=== PATIENT | female | born 1995 | race African-American/Black ===

== ENCOUNTER 2016-07-05 18:08 | Emergency (ER) | payer MEDICARE ==
[2016-07-05 19:06] LABS: HCG URINE NEGATIVE (NEGATIVE)
[2016-07-05 20:58] LABS: HCG SERUM NEGATIVE (NEGATIVE)
[2016-07-05 21:18] LABS: COLOR YELLOW (YELLOW)
[2016-07-05 21:19] LABS: APPEARANCE CLEAR (CLEAR); BILIRUBIN NEGATIVE (NEGATIVE); GLUCOSE NEGATIVE (NEGATIVE); KETONE NEGATIVE (NEGATIVE); LEUKOCYTE ESTERASE NEGATIVE (NEGATIVE); NITRITE NEGATIVE (NEGATIVE); PROTEIN NEGATIVE (NEGATIVE); SPECIFIC GRAVITY 1.015 (1.005-1.020); UROBILINOGEN NORMAL (NORMAL)
== END 2016-07-05 21:56 | disposition home or self-care (01) ==
LOC: D.LDO 18:08 → D.ER 18:08 → EDSTATUS 19:57 → D.ER 21:56
PROVIDERS: Nurse Practitioner Family; Obstetrics & Gynecology
DX: Z32.02 Encounter for pregnancy test, result negative (principal); F60.3 Borderline personality disorder

== ENCOUNTER 2017-07-12 14:50 | Emergency (ER) | payer MEDICARE | END 2017-07-12 19:00 | disposition left against medical advice (07) | LOC: D.ER 14:50 | DX: J02.9 Acute pharyngitis, unspecified (principal) ==

== ENCOUNTER 2019-09-01 16:18 | Emergency (ER) | payer MEDICAID ==
[~2019-09-01] VITALS: Ht 157.5 cm; Wt 106.4 kg
[2019-09-01 16:27] VITALS: Ht 157.5 cm; Wt 106.4 kg
[2019-09-01 17:12] LABS: HEMATOCRIT 41.7 % (36.0-48.0); LYMPHOCYTES 34.2 % (15-50); MCH 25.9 pg (26.0-34.0); MCHC 31.2 g/dL (31.0-37.0); MCV 83.1 fL (80.0-100.0); MEAN PLATELET VOLUME 9.7 fL (7.4-10.4); NEUTROPHILS 59.4 % (40-80); RBC 5.02 10x6/uL (4.00-5.40); RDW 12.9 % (11.5-14.5); WBC 7.8 10x3/uL (4.8-10.8)
[2019-09-01 17:16] LABS: PLATELET COUNT 297 10x3/uL (130-400)
[2019-09-01 17:33] LABS: CALC OSMOLALITY 273 mosm/kg (275-300); CALCIUM 8.4 mg/dL (8.5-10.1); CARBON DIOXIDE 25.9 mmol/L (21.0-32.0); CHLORIDE - SERUM 103 mmol/L (98-107); CREATININE - SERUM 0.9 mg/dL (0.6-1.3); HCG SERUM NEGATIVE (NEGATIVE); POTASSIUM - SERUM 3.7 mmol/L (3.5-5.1); SODIUM 137 mmol/L (136-145); UREA NITROGEN 9 mg/dL (7-18); eGFR NON AFRICAN AMERICAN 82 mL/min (90-120)
[2019-09-01 17:34] LABS: GLUCOSE 124 mg/dL (74-106)
[2019-09-01 17:40] LABS: ALBUMIN 3.2 g/dL (3.4-5.0); ALKALINE PHOSPHATASE 92 U/L (30-120); ALT (SGPT) 18 U/L (10-68); BILIRUBIN - TOTAL 0.15 mg/dL (0.2-1.3); PROTEIN - SERUM 7.2 g/dL (6.4-8.2)
[2019-09-01 18:24] LABS: BACTERIA MODERATE /hpf (NEGATIVE); BILIRUBIN NEGATIVE (NEGATIVE); GLUCOSE NEGATIVE (NEGATIVE); KETONE NEGATIVE (NEGATIVE); NITRITE NEGATIVE (NEGATIVE); UROBILINOGEN NORMAL (NORMAL)
[2019-09-01] MEDS ORDERED: MACROBID100 MG PO (18:34)
[2019-09-01 18:43] VITALS: BP 132/78
== END 2019-09-01 18:44 | disposition home or self-care (01) ==
LOC: D.ER 16:18
PROVIDERS: Family Medicine
DX: N39.0 Urinary tract infection, site not specified (principal); R10.9 Unspecified abdominal pain